=== PATIENT | female | born 1950 | race Caucasian/White ===

== ENCOUNTER 2018-01-28 10:11 | Outpatient (CLI) | payer OTHER | END 2018-01-28 20:47 | disposition home or self-care (01) | LOC: SMA 10:11 | PROVIDERS: ATTEND Family Medicine | DX: Z12.31 Encounter for screening mammogram for malignant neoplasm of breast (principal) | CPT/HCPCS: 77067 ==

== ENCOUNTER 2019-03-03 10:06 | Outpatient (CLI) | payer OTHER | END 2019-03-03 21:05 | disposition home or self-care (01) | LOC: SMA 10:06 | DX: Z12.31 Encounter for screening mammogram for malignant neoplasm of breast (principal) | CPT/HCPCS: 77067 ==

== ENCOUNTER 2019-03-16 10:00 | Outpatient (CLI) | payer OTHER | END 2019-03-16 21:07 | disposition home or self-care (01) | LOC: SMA 10:00 | PROVIDERS: ATTEND Family Medicine | DX: R92.8 Other abnormal and inconclusive findings on diagnostic imaging of breast (principal); R92.1 Mammographic calcification found on diagnostic imaging of breast | CPT/HCPCS: 77065 ==